=== PATIENT | female | born 1950 | race Two or more races ===

== ENCOUNTER 2021-11-22 14:16 | Inpatient (IN) | payer MEDICARE ==
[2021-11-22] MEDS: ACETAMINOPHEN TAB 325 MG TAB PO STA ×2 (17:10→17:12)
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
[2021-11-22 17:19] LABS: Anisocytosis Slight; Basophils % (A) 0 %; Eosinophils # (A) 0.1 k/uL (0-0.7); Eosinophils % (A) 2 %; HGB 8.7 gm/dL (11.4-16.0); Hypochromasia Marked; Lymphocytes # (A) 0.9 k/uL (1.0-4.8); Lymphocytes % (A) 19 %; MCH 20.8 pg (25.0-35.0); MCHC 27.3 g/dL (31.0-37.0); MCV 76.2 fL (80.0-100.0); Mean Platelet Volume 7.2; Microcytosis Slight; Monocytes # (A) 0.2 k/uL (0-1.0); Monocytes % (A) 5 %; Neutrophils # (A) 3.4 k/uL (1.3-7.7); Neutrophils % (A) 73 %; Platelet Count 273 k/uL (150-450); RDW 18.3 % (11.5-15.5); WBC 4.6 k/uL (3.8-10.6)
[2021-11-22 17:33] LABS: ALT 11 U/L (4-34); AST 32 U/L (14-36); African American GFR (CKD) >90 (>60 ml/min/1.73 sqM); Albumin 4.2 g/dL (3.5-5.0); Alkaline Phosphatase 81 U/L (38-126); Anion Gap 11 mmol/L; Blood Urea Nitrogen 12 mg/dL (7-17); Calcium 9.3 mg/dL (8.4-10.2); Carbon Dioxide 23 mmol/L (22-30); Chloride 106 mmol/L (98-107); Glucose 106 mg/dL (74-99); Magnesium 1.9 mg/dL (1.6-2.3); Non-African American GFR(CKD) >90 (>60 ml/min/1.73 sqM); Potassium 4.7 mmol/L (3.5-5.1); Sodium 140 mmol/L (137-145); Total Bilirubin 0.7 mg/dL (0.2-1.3); Total Protein 7.5 g/dL (6.3-8.2)
[2021-11-22 17:36] LABS: Prothrombin Time 10.9 sec (9.0-12.0)
[2021-11-22 17:42] LABS: Partial Thromboplastin Time 21.3 sec (22.0-30.0)
--- NOTE | 2021-11-22 18:10 | CT ---
EXAMINATION TYPE: CT brain wo con DATE OF EXAM: 11/22/2021 COMPARISON: None HISTORY: Bilateral lower leg weakness x1 week. CT DLP: 1028.[address] of the brain was performed. The ventricles, basal cisterns and sulci overlying the cerebral convexities demonstrate mild enlargem ent. There is no evidence for intracranial hemorrhage or sulcal effacement. There is decreased attenuation about the periventricular white matter and deep white matter of both c erebral hemispheres, compatible with chronic small vessel ischemia. Differential diagnosis does inclu de demyelination. No mass effects are seen.No midline shift. Osseous calvarium is intact. If symptoms persist consider MRI. IMPRESSION: 1. Age related atrophic and chronic small vessel ischemic change without acute intracranial process s een at this time.
--- NOTE | 2021-11-22 18:28 | CT ---
EXAMINATION TYPE: CT thor lumbar spine wo con DATE OF EXAM: 11/22/2021 COMPARISON: None. HISTORY: Bilateral lower leg weakness x1 week. CT DLP: 663.2 mGycm Automated exposure control for dose reduction was used. FINDINGS: Thoracic spine: The thoracic vertebral bodies do have preserved heights and alignment. Intervertebral discs and osse ous structures have normal appearance. I do not see any evidence of extradural defects nor significan t spinal canal narrowing at any thoracic vertebral body level. Lumbar Spine: Alignment: There are 6 lumbar type vertebral bodies within normal alignment. Bone: No evidence of fracture is identified. The level degenerative disc disease changes are seen th roughout the spine. Discs: T12-L1: No spinal canal or neural foraminal stenosis is identified. L1-L2: No spinal canal or neural foraminal stenosis is identified. L2-L3: No spinal canal or neural foraminal stenosis is identified. L3-L4: No spinal canal or neural foraminal stenosis is identified. L4-L5: No spinal canal or neural foraminal stenosis is identified. L5-S1: No spinal canal or neural foraminal stenosis is identified. Other: Left parapelvic renal cyst measuring up to 5.7 x 3.1 cm IMPRESSION: No CT evidence of fracture, disc herniation, spinal canal or neural foraminal stenosis.
--- NOTE | 2021-11-22 18:49 | CT ---
EXAMINATION TYPE: CT angio head neck DATE OF EXAM: 11/22/2021 HISTORY: Bilateral lower leg weakness x1 week. COMPARISON: None CT DLP: 316.3 mGycm. Automated Exposure Control for Dose Reduction was Utilized. TECHNIQUE: CTA scan of the neck is performed with IV Contrast, patient injected with 65ml of Isovue 370, axial images are obtained, coronal and sagittal reformatted images are reviewed. 3D reconstructe d images are created on an independent workstation and reviewed. FINDINGS: Carotid/Vascular Structures: Right Carotid System: The common carotid artery and external carotid artery are patent There is no evidence stenosis at th e carotid bifurcation. The remaining portions of the internal carotid artery demonstrate normal size without significant narrowing. Left Carotid System: The common carotid artery and external carotid artery are patent There is no evidence stenosis at th e carotid bifurcation. The remaining portions of the internal carotid artery demonstrate normal size without significant narrowing. There is anatomic variant for vessel aortic arch. The vertebral arteries are patent. CTA HEAD: No evidence of acute intracranial hemorrhage, mass effect, or midline shift. The ventricles, sulci, a nd cisterns are unremarkable. The visualized portions of the internal carotid arteries, middle cerebral arteries, anterior cerebral arteries, and posterior cerebral arteries are patent. The basilar and vertebral arteries are patent. IMPRESSION: 1. No evidence of dissection of the cervical internal carotid arteries or vertebral arteries or any e vidence of significant stenosis at the carotid bifurcations. 2. No evidence of high-grade stenosis or intracranial aneurysm.
[2021-11-22] MEDS ORDERED: ACETAMINOPHEN TAB 325 MG TAB PO PRN (19:08)
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
[2021-11-23 16:14] LABS: Amorphous Sediment,Urine Rare /hpf; Appearance,Urine Cloudy (Clear); Bacteria,Urine Few /hpf; Bilirubin,Urine Negative (Negative); Blood,Urine Negative (Negative); Color,Urine Yellow; Glucose,Urine (UA) Negative (Negative); Granular Casts,Urine 1 /lpf (0); Hyaline Casts,Urine 1 /lpf (0-2); Ketones,Urine 1+ (Negative); Leukocyte Esterase,Urine Large (Negative); Mucus,Urine Many /hpf; Nitrite,Urine Negative (Negative); PH, Urine 6.5 (5.0-8.0); Protein,Urine Negative (Negative); RBC,Urine 2 /hpf (0-5); Specific Gravity,Urine 1.024 (1.001-1.035); WBC,Urine 14 /hpf (0-5)
[2021-11-23 16:17] LABS: Amphetamine Screen,Urine Not Detected (NotDetected); Barbiturate Screen,Urine Not Detected (NotDetected); Benzodiazepines Screen,Urine Not Detected (NotDetected); Cocaine Screen,Urine Not Detected (NotDetected); Methadone Screen, Urine Not Detected (NotDetected); Opiate Screen,Urine Not Detected (NotDetected); Oxycodone Screen, Urine Not Detected (NotDetected); Phencyclidine Screen,Urine Not Detected (NotDetected); Tricyclic Antidepressant,Urine Not Detected (NotDetected); Urn Cannabinoid Scrn Not Detected (NotDetected)
[2021-11-23] MEDS: IOPAMIDOL CONTRAST (ORAL USE) VIAL PO PRN ×2 (16:41→17:43)
[2021-11-23] MEDS: HEPARIN SODIUM,PORCINE/PF 5,000 UNIT/0.5 ML SYRINGE SQ SCH ×2 (16:44→21:27)
[2021-11-23 17:11] LABS: C Reactive Protein <0.5 mg/dL (<1.0)
--- NOTE | 2021-11-23 20:14 | CT ---
EXAMINATION TYPE: CT ChestAbdPelvis wo con CT DLP: 658 mGycm, Automated exposure control for dose reduction was used. DATE OF EXAM: 11/23/2021 6:58 PM COMPARISON: CT T-spine L-spine. CLINICAL INDICATION:Female, 71 years old with history of occult malignancy- paraneoplastic neuropathy ;, Occult malignancy, paraneoplastic neuropathy Technique: Multiple axial images of the chest, abdomen, and pelvis were obtained following the intrav enous administration of 100 mL Isovue-300. Two-dimensional coronal and sagittal reconstructions were obtained. Findings: CHEST: LUNGS/ PLEURA: No evidence of mass or clinically significant pulmonary nodule.. AIRWAY: Patent and unremarkable.. HEART: Size within normal limits. MEDIASTINUM: No gross evidence of adenopathy. VASCULATURE: No aortic aneurysm. MUSCULOSKELETAL: No acute osseous abnormalities SOFT TISSUES/LYMPH NODES: Unremarkable. LOWER NECK: No significant findings. ABDOMEN: ABDOMEN LIVER: Unremarkable GALLBLADDER AND BILE DUCTS: Gallbladder is distended up to 10.4 x 2.6 cm. PANCREAS: Unremarkable. SPLEEN: Unremarkable. ADRENAL GLANDS: Unremarkable. KIDNEYS AND URETERS: No evidence of hydronephrosis or renal calculus. The ureters are unremarkable. Left renal cyst 6.0 x 3.3 cm PELVIS BLADDER: Distended and within normal limits. REPRODUCTIVE: Unremarkable. ABDOMEN & PELVIS STOMACH AND BOWEL: No evidence of bowel obstruction. There is no evidence for mass in the bowel. The appendix is visualized and unremarkable. PERITONEUM: No evidence of pneumoperitoneum or free fluid. VASCULATURE: No evidence of aortic aneurysm. MUSCULOSKELETAL: No acute osseous abnormalities bony islands in the femoral head on the left and neck on the right. LYMPH NODES: No gross evidence for lymphadenopathy. SOFT TISSUE/ABDOMINAL WALL: Unremarkable IMPRESSION: No evidence for mass or acute process.
--- NOTE | 2021-11-23 21:24 | P.CNNES ---
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 The symptoms started around 11/14/2021, when she noticed she has hard time to walk and it has progressed since then. Her balls of the feet are feeling like sandpaper. She feels stiff and heaviness in the legs from knees down. It is hard for her to lift the legs. The muscles in the legs and feet feels very tight. She felt walking stifflegged gait. When she goes up to stand and walk, her balance is really off and needs help. There is no pain. Prior to 11/14/2021, she used to walk without any device, no falls or balance issues. 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 She always been a very active person. She denies any symptoms in her hands like paresthesias or weakness. Her hands just feel dry. Her neck hurts only with stress but not other times. Denies any low back pain. No falls. Patient denies any bowel or bladder issues like urgency frequency or incontinence. Denies any headache or any visual problems except for cataract in the left eye. Patient states that her knee cap and distal hamstrings feels full. Patient denies any recent upper respiratory infection although she does have sinus that she has "all her life. Nothing new. Denies any gastroenteritis. She received Pfizer vaccines both doses in Spring 2020. Has not received the booster dose yet. Vital signs arrival blood pressure 152/74, pulse rate 99, temperature 98.4. Blood test shows normal WBC, hemoglobin 8.7, platelets 273. PT is normal INR is 1.0. Chem-7 is normal. Hepatic panel normal. Mccoy virus PCR negative. Computed tomography scan head showed age-related atrophy and chronic small vessel ischemic change, without acute intracranial process seen. CTA of the hea d shows no evidence of dissection of the cervical internal carotid arteries or vertebral arteries or any evidence of significant stenosis at the carotid bifurcations. No evidence of high-grade stenosis or intracranial aneurysm. EKG shows normal sinus rhythm, nonspecific ST abnormality. CT of the thoracic and lumbar spine showed no CT evidence of fracture, disc herniation, spinal canal or neural foraminal stenosis. Patient denies diabetes or any alcohol use or tobacco. Review of Systems As above in detail. All other 14 point of review systems reviewed and unrema rkable. Past Medical History Past Medical History: No Reported History History of Any Multi-Drug Resistant Organisms: None Reported Past Surgical History: Section Past Psychological History: No Psychological Hx Reported Smoking Status: Never smoker Past Alcohol Use History: None Reported Past Drug Use History: None Reported Medications and Allergies Home Medications Medication Instructions Recorded Confirmed Type No Known Home Medications 11/22/21 11/23/21 History Allergies Allergy/AdvReac Type Severity Reaction Status Date / Time No Known Allergies Allergy Verified 11/23/21 09:34 Physical Examination - Vital Signs Vital Signs: Vital Signs Temp Pulse Pulse Resp BP BP Pulse Ox 11/23/21 07:00 98.1 F 77 16 132/67 100 11/23/21 06:06 97.5 F L 65 18 111/55 99 11/23/21 01:25 72 18 154/75 97 11/23/21 01:23 98.0 F 68 18 130/59 99 11/22/21 22:13 88 18 134/55 100 11/22/21 19:35 74 18 119/57 100 11/22/21 15:18 98.4 F 99 18 152/74 100 Intake and Output 11/22/21 11/23/21 11/23/21 22:59 06:59 14:59 Other: Voiding Method Toilet # Voids 1 # Bowel Movements 1 Weight 45.359 kg 45.359 kg Patient is an elderly female, in no acute distress. Patient is alert awake oriented to time place and person. Speech and language functions are normal. Attention, concentration and fund of knowledge is ad equate. On cranial examination, pupils are round and reacting to light, visual gamez are full on confrontation, extraocular muscles are intact with no nystagmus. Patient has obvious cataract in the left eye. Face is symmetric, tongue protrudes to the midline. Palatal elevation and sensation normal, hearing is slightly decreased and shoulder shrug normal, facial sensation normal. Shoulder shrug normal. On muscle strength testing, there is no pronator drift and the strength is normal in arms and legs distally and proximally, including detailed testing of the lower extremities. Deep tendon reflexes are 1 in the upper limbs, 3 at the knees, 2+ ankles and plantar is up on the right, but flat on the left. Sensory to touch is equal with no neglect. Cerebellar function showed no ataxia for [id number] testing, although she has slight ataxia for beak-au-spxs testing, left more than right. No dysdiadochokinesia. Tone and bulk of muscles normal. Gait is significantly off. Patient requires one assist, walks with wide-based, very unsteady. Fall risk. On general examination, there is no carotid bruit or murmur, S1-S2 audible. Abdomen is soft nontender, no organomegaly. Chest is clear. Peripheral pulses are present. No edema. Results - Laboratory Findings CBC and BMP: 11/22/21 17:08 11/22/21 17:08 Abnormal Lab Findings: Abnormal Labs 11/22/21 11/22/21 11/22/21 17:08 17:08 17:08 Hgb 8.7 L Hct 32.0 L MCV 76.2 L MCH 20.8 L MCHC 27.3 L RDW 18.3 H Lymphocytes # 0.9 L APTT 21.3 L Creatinine 0.40 L Glucose 106 H Assessment and Plan Assessment: * 71-year-old female admitted with fairly recent onset of distal paresthesias in the feet, and gait difficulties since 11/14/2021, which has progressed since onset. No symptoms involving the upper extremities, or any bowel or bladder issues. Examination reveals slightly brisk reflexes in the legs, with Babinski on the right. Her muscle strength is intact in the arms and legs. Rule out B12 or folate deficiency. Guillain-Pacheco syndrome less likely with no preceding upper respiratory infection, or recent vaccination and preserved reflexes. Patient denies any bowel or bladder issues. Plan: * Agree with checking B12 and folate. We will also check MMA, B6, Sjogren's antibodies, HARSH, hemoglobin A1c, immune fixation electrophoresis, IgM. * Further management based upon above test results. * Thank you for the consult.
[2021-11-24 03:29] LABS: Vitamin B12 <150.0 pg/mL (200.0-944.0)
[2021-11-24 04:44] LABS: % Iron Saturation 2.35 (12.00-45.00); Ferritin 2.3 ng/mL (10.0-291.0)
[2021-11-24 09:31] LABS: Basophils # (A) 0.02 X 10*3/uL (0.00-0.10); Basophils % (A) 0.6 %; Eosinophils # (A) 0.16 X 10*3/uL (0.04-0.35); Eosinophils % (A) 4.5 %; HCT 30.9 % (37.2-46.3); HGB 7.8 g/dL (12.0-15.0); Lymphocytes % (A) 28.1 %; MCH 19.2 pg (27.0-32.0); MCHC 25.2 g/dL (32.0-37.0); MCV 76.1 fL (80.0-97.0); Mean Platelet Volume 9.6 fL (9.5-12.2); Monocytes # (A) 0.27 X 10*3/uL (0.20-1.00); Monocytes % (A) 7.6 %; Neutrophils % (A) 58.9 %; Platelet Count 258 X 10*3/uL (140-440); RBC 4.06 X 10*6/uL (4.10-5.20); RDW 19.2 % (11.5-14.5); WBC 3.56 X 10*3/uL (4.50-10.00)
[2021-11-24] MEDS: HEPARIN SODIUM,PORCINE/PF 5,000 UNIT/0.5 ML SYRINGE SQ SCH ×2 (09:37→19:29)
[2021-11-24 10:48] LABS: African American GFR (CKD) 111.8 (60.0-200.0); BUN/Creat Ratio 23.76 Ratio (12.00-20.00); Blood Urea Nitrogen 12.5 mg/dL (9.0-27.0); Calcium 9.3 mg/dL (8.7-10.3); Carbon Dioxide 24.6 mmol/L (20.0-27.5); Chloride 106 mmol/L (96-109); Glucose 93 mg/dL (70-110); Non-African American GFR(CKD) 96.4 (60.0-200.0); Potassium 3.9 mmol/L (3.5-5.5); Sodium 143 mmol/L (135-145)
[2021-11-24 10:54] LABS: Folate, Serum >20.00 ng/mL (4.40-31.00)
[2021-11-24] MEDS: CYANOCOBALAMIN 1,000 MCG/ML 1 ML VIAL IM SCH (10:56)
[2021-11-24] MEDS ORDERED: FOLIC ACID 1 MG TAB PO SCH (12:00)
[2021-11-24] MEDS: MULTIVITAMINS, THERA 1 EACH TAB PO SCH (13:23)
[2021-11-24] MEDS: THIAMINE 100 MG TAB PO SCH (13:23)
--- NOTE | 2021-11-24 16:01 | PN ---
PROGRESS NOTE DATE OF SERVICE: 11/24/2021. HISTORY OF PRESENT ILLNESS: This 71-year-old woman who was admitted with significant difficulties and ataxia, possibly had subacute. Vitamin B12 less than 150, folic acid level was normal indicating possibly vitamin B12 deficiency, but the exact etiology remains unknown. Abdominal CT scan of the abdomen and pelvis and chest to rule out the possibility of occult malignancy and rule out the possibility of paraneoplastic syndrome. The patient also had back pain, but however, diffuse CT scan did not show any acute abnormality of spinal canal stenosis at this time. I discussed with Dr. Turner who is in agreement starting with vitamin B12 1 g IM has been initiated. Would also recommend gastroenterology workup and stool OB for guaiac also and also send out a workup for celiac disease including celiac disease panel and intrinsic factor antibody also has been requested. The patient being closely monitored. The patient also had UTI, which was treated with IV antibiotics. PAST MEDICAL HISTORY: Reviewed. REVIEW OF SYSTEMS: Cardiovascular: No angina. Respiration as mentioned earlier. GI as mentioned earlier. no dysuria. Nervous system: As mentioned earlier. CURRENT MEDICATIONS: Reviewed and include: Tylenol, Rocephin, B12, folic acid, multivitamins, B1. PHYSICAL EXAMINATION: Patient is alert, oriented x3. Pulse is 60, blood pressure 116/80, respiration 15, temperature 97.6, pulse ox 100 percent on room air. HEENT: Conjunctivae normal. Neck: No JVD. Cardiovascular: S1, S2 muffled. Respiratory: Breath sounds diminished in the bases. No rhonchi. No crackles. Abdomen: Soft, nontender. Nervous system: Ataxic. Romberg sign is positive. signs present. LABS: WBC 3.65 and hemoglobin 7.2, MCV noted. ASSESSMENT: 1. Gait dysfunction, ataxia, possibly vitamin B12 deficiency and subacute combined degeneration. 2. Anemia, microcytic, possibly iron deficiency. 3. Rule out pernicious anemia or celiac disease. 4. Mild lymphopenia of undetermined significance. 5. History of back pain. 6. History of section. 7. FULL CODE. RECOMMENDATIONS AND DISCUSSION: I recommend to continue current medications, management and symptomatic treatment. Continue the vitamin supplements as recommended. Discussed with Neurology. Closely follow with Neurology. A CT of the brain was also noted to be normal and otherwise the antibodies mentioned as above have been sent out. We will await those antibodies and I would also recommend the patient to follow closely with primary physician after discharge and as well as neurology regarding the above above-mentioned medical issues. ISELA / EMERYN: [id number] / IRMA
[2021-11-24] MEDS: SODIUM FERRIC GLUCONAT-SUCROSE 125 MG in SODIUM CHLORIDE 0.9% 100 ML IVPB SCH (16:07)
[2021-11-25 04:41] LABS: Gliadin AB IgA, Deaminated NEGATIVE (NEGATIVE); Gliadin AB IgA, Unit <0.2 U/mL; Gliadin AB IgG, Deaminated NEGATIVE (NEGATIVE)
[2021-11-25] MEDS: HEPARIN SODIUM,PORCINE/PF 5,000 UNIT/0.5 ML SYRINGE SQ SCH ×2 (08:59→21:03)
[2021-11-25] MEDS: CYANOCOBALAMIN 1,000 MCG/ML 1 ML VIAL IM SCH (09:00)
[2021-11-25 09:11] LABS: Basophils # (A) 0.02 X 10*3/uL (0.00-0.10); Basophils % (A) 0.5 %; Eosinophils # (A) 0.09 X 10*3/uL (0.04-0.35); Eosinophils % (A) 2.3 %; HCT 30.6 % (37.2-46.3); HGB 7.7 g/dL (12.0-15.0); Lymphocytes # (A) 0.48 X 10*3/uL (0.90-5.00); Lymphocytes % (A) 12.5 %; MCH 19.7 pg (27.0-32.0); MCHC 25.2 g/dL (32.0-37.0); MCV 78.3 fL (80.0-97.0); Monocytes # (A) 0.18 X 10*3/uL (0.20-1.00); Monocytes % (A) 4.7 %; Neutrophils # (A) 3.07 X 10*3/uL (1.80-7.70); Neutrophils % (A) 79.7 %; Platelet Count 215 X 10*3/uL (140-440); RBC 3.91 X 10*6/uL (4.10-5.20); RDW 19.3 % (11.5-14.5); WBC 3.85 X 10*3/uL (4.50-10.00)
[2021-11-25 09:32] LABS: African American GFR (CKD) 111.3 (60.0-200.0); Anion Gap 13.1 mmol/L (10.00-18.00); BUN/Creat Ratio 24.58 Ratio (12.00-20.00); Blood Urea Nitrogen 13.1 mg/dL (9.0-27.0); Calcium 9.3 mg/dL (8.7-10.3); Carbon Dioxide 24.5 mmol/L (20.0-27.5); Potassium 3.9 mmol/L (3.5-5.5)
[2021-11-25] MEDS: SODIUM FERRIC GLUCONAT-SUCROSE 125 MG in SODIUM CHLORIDE 0.9% 100 ML IVPB SCH (09:39)
--- NOTE | 2021-11-25 10:01 | P.PN ---
Subjective Progress Note Date: 11/24/21 Patient was seen for a follow-up. Denies any new changes. Objective - Vital Signs Vital signs: Vital Signs Temp 98.0 F 11/25/21 08:00 Pulse 89 11/25/21 08:00 Resp 16 11/25/21 08:00 BP 99/54 11/25/21 08:00 Pulse Ox 99 11/25/21 08:00 Intake & Output 11/24/21 11/25/21 11/25/21 18:59 06:59 18:59 Intake Total 540 Balance 540 Intake: Oral 540 Other: Voiding Method Toilet Toilet # Voids 3 1 - Exam Examination unchanged. - Labs CBC & Chem 7: 11/25/21 06:09 11/25/21 06:09 Labs: Abnormal Lab Results - Last 24 Hours (Table) 11/24/21 11/24/21 11/25/21 Range/Units 06:39 06:39 06:09 WBC 3.85 L (4.50-10.00) X 10*3/uL RBC 3.91 L (4.10-5.20) X 10*6/uL Hgb 7.7 L (12.0-15.0) g/dL Hct 30.6 L (37.2-46.3) % MCV 78.3 L (80.0-97.0) fL MCH 19.7 L (27.0-32.0) pg MCHC 25.2 L (32.0-37.0) g/dL RDW 19.3 H (11.5-14.5) % Lymphocytes # 0.48 L (0.90-5.00) X 10*3/uL Monocytes # 0.18 L (0.20-1.00) X 10*3/uL Creatinine 0.5 L (0.6-1.5) mg/dL BUN/Creatinine Ratio 23.76 H (12.00-20.00) Ratio IgM 365.0 H (40.0-280.0) mg/dL 11/25/21 Range/Units 06:09 WBC (4.50-10.00) X 10*3/uL RBC (4.10-5.20) X 10*6/uL Hgb (12.0-15.0) g/dL Hct (37.2-46.3) % MCV (80.0-97.0) fL MCH (27.0-32.0) pg MCHC (32.0-37.0) g/dL RDW (11.5-14.5) % Lymphocytes # (0.90-5.00) X 10*3/uL Monocytes # (0.20-1.00) X 10*3/uL Creatinine 0.5 L (0.6-1.5) mg/dL BUN/Creatinine Ratio 24.58 H (12.00-20.00) Ratio IgM (40.0-280.0) mg/dL Microbiology - Last 24 Hours (Table) 11/23/21 16:00 Urine Culture - Final Urine,Voided Assessment and Plan Assessment: * Severe vitamin B12 deficiency with clinical evidence of subacute combined degeneration of the cord. Plan: * Patient's B12 is severely low < 150 (200-944). Folate > 20. Methylmalonic acid pending. Patient started on vitamin B12 injection 1000 g IM daily. Patient will need injections daily for 1 week, then once a week for 3 months then twice a month. Patient had severe B12 deficiency. Suggest checking intrinsic factor antibodies, parietal cell antibodies. B6 level pending. We will start B6 50 mg daily empirically. * Sjogren's antibodies negative, HARSH negative, IgM is slightly elevated 365/280. Immune fixation electrophoresis pending. * Hemoglobin A1c 5.2 * Patient will need PT OT evaluation and treatment. * Neurologically clear, if cleared by PT OT.
[2021-11-25 11:55] LABS: IgG Subclass 2 595.8 mg/dL (241.80-700.30); IgG Subclass 3 69.1 mg/dL (21.82-176.00); IgG Subclass 4 87.4 mg/dL (3.92-86.40)
[2021-11-25] MEDS: THIAMINE 100 MG TAB PO SCH (11:56)
[2021-11-25] MEDS: MULTIVITAMINS, THERA 1 EACH TAB PO SCH (11:56)
[2021-11-25] MEDS: PYRIDOXINE 50 MG TAB PO SCH (11:56)
[2021-11-25] MEDS ORDERED: SODIUM CHLORIDE 0.9% 1,000 ML IV SCH (19:00)
--- NOTE | 2021-11-25 20:05 | PN ---
PROGRESS NOTE DATE OF SERVICE: 11/25/2021 This 71-year-old woman was admitted with gait dysfunction and ataxia, possibly with subacute combined degeneration and with vitamin B12 deficiency. Patient is being closely monitored. No chest pain. No palpitations. No fever. Neurology is following the patient closely. PHYSICAL EXAMINATION: Alert and oriented x3. Pulse 77, blood pressure 106/59, respirations 16, temperature 98.3, pulse ox 100% on room air. HEENT: Conjunctivae normal. NECK: No jugular venous distention. CARDIOVASCULAR: S1, S2 muffled. RESPIRATION: Breath sounds diminished at the bases. A few scattered rhonchi. ABDOMEN: Soft, nontender. NERVOUS SYSTEM: Higher functions mentioned earlier. Otherwise, sensory abnormalities present. Posterior column sensations diminished in both legs. Romberg sign is positive. LABS: WBC 3.8, hemoglobin 7.7. Other labs are noted. IgG4 was 87, slightly more than normal. HARSH and other autoimmune markers are negative. ASSESSMENT: 1. Gait dysfunction, ataxia, possible subacute combined degeneration secondary to vitamin B12 deficiency. Rule out pernicious anemia. 2. Anemia, microcytic, possibly iron deficiency. Rule out celiac disease. 3. Rule out pernicious anemia, celiac disease. 4. Mild lymphopenia of undetermined significance. 5. History of back pain. 6. History of section. 7. FULL CODE. RECOMMENDATIONS AND DISCUSSION: I recommend to continue current medications, continue with the monitoring, symptomatic treatment. I would recommend hematology/oncology evaluation for the classification of anemia. I would also recommend a gastroenterology evaluation. Continue the current medications. Await further testing and PT/OT evaluation to rule out any significant gait dysfunction and need for any rehab. Further recommendations to follow. MMODL / IJN: [id number] /
[2021-11-26 02:20] VITALS: TEMP 98.3
[2021-11-26 07:25] VITALS: BP 112/69; PULSE 78; RESP 15
[2021-11-26] MEDS: SODIUM FERRIC GLUCONAT-SUCROSE 125 MG in SODIUM CHLORIDE 0.9% 100 ML IVPB SCH (10:05)
[2021-11-26] MEDS: HEPARIN SODIUM,PORCINE/PF 5,000 UNIT/0.5 ML SYRINGE SQ SCH (10:07)
[2021-11-26] MEDS: PYRIDOXINE 50 MG TAB PO SCH (10:07)
[2021-11-26] MEDS: CYANOCOBALAMIN 1,000 MCG/ML 1 ML VIAL IM SCH (10:14)
[2021-11-26] MEDS: MULTIVITAMINS, THERA 1 EACH TAB PO SCH (12:10)
[2021-11-26] MEDS: THIAMINE 100 MG TAB PO SCH (12:10)
--- NOTE | 2021-11-26 13:16 | P.DS ---
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 Rule out pernicious anemia Anemia, microcytic, possibly iron deficiency rule out celiac disease Rule out pernicious anemia, celiac disease Mild lymphopenia of undetermined significance History back pain History of section Full code Discharge disposition Patient is being discharged in a stable condition with guarded prognosis to [facility]. Patient will follow-up with Dr. Waddell in the outpatient setting upon discharge. Patient is to continue vitamin B12 injections weekly for the next 3 months and then twice a month thereafter. Recommend neurology follow-up in the outpatient setting in 1-2 weeks. Total time taken is greater than 35 minutes. Hospital course This is an 71-year-old female who was recently admitted with gait dysfunction and ataxia possibly with subacute combined degeneration of vitamin B12 def iciency and was being closely monitored. She was evaluated by neurology and recommending close outpatient follow-up in the next 1-2 weeks with possible further testing outpatient. Patient will continue on vitamin B12 injections weekly for the next 3 months with periodic outpatient labs and also then continue with B12 injections twice monthly thereafter. Recommend outpatient follow-up with gastroneurology along with hematology in the outpatient setting for further workup of anemia. Currently no reports of chest pain, shortness of breath, or palpitations. Patient is afebrile. No reports of nausea or vomiting and patient is tolerating diet. Patient will be going to [facility] today. Guarded prognosis. On exam vital signs are stable. Cardio S1, S2 are muffled. Respiratory system shows diminished breath sounds at the bases with no wheezing or rhonchi noted. Abdomen is soft and nontender. Nervous system shows diffuse weakness. Please refer to medication reconciliation sheet for a list of medications. Patient Condition at Discharge: Stable Plan - Discharge Summary Discharge Rx Participant: Yes New Discharge Prescriptions: New Multivitamins, Thera [Multivitamin (formulary)] 1 each PO DAILY@1200 tab Acetaminophen Tab [Tylenol] 650 mg PO Q6HR PRN tab PRN Reason: Mild Pain Or Fever > 100.5 Cyanocobalamin [Vitamin B-12 Injection] 1,000 mcg IM WEEKLY #4 ml Thiamine [Vitamin B-1] 100 mg PO DAILY@1200 tab Pyridoxine [Vitamin B-6] 50 mg PO DAILY tab Discharge Medication List Acetaminophen Tab [Tylenol] 650 mg PO Q6HR PRN tab 11/26/21 [Rx] Cyanocobalamin [Vitamin B-12 Injection] 1,000 mcg IM WEEKLY #4 ml 11/26/21 [Rx] Multivitamins, Thera [Multivitamin (formulary)] 1 each PO DAILY@1200 tab 11/26/21 [Rx] Pyridoxine [Vitamin B-6] 50 mg PO DAILY tab 11/26/21 [Rx] Thiamine [Vitamin B-1] 100 mg PO DAILY@1200 tab 11/26/21 [Rx] Follow up Appointment(s)/Referral(s): [facility], [NON-STAFF] - 1-2 Days Gerri Burnham [Primary Care Provider] - Jaxon Reese MD [REFERRING] - 1 Week Activity/Diet/Wound Care/Special Instructions: Patient is going [facility] [place] Activity as followed Patient to follow up with neurology outpatient Patient to receive vitamin B12 IM injections weekly for the next 3 months and then transition to twice a month thereafter and recommend further testing outpatient with neurology Discharge Disposition: TRANSFER TO SNF/ECF
--- NOTE | 2021-11-26 14:02 | MR ---
EXAMINATION TYPE: MR brain wo con DATE OF EXAM: 11/26/2021 1:01 PM COMPARISON: NONE HISTORY: Weakness, ataxia. FINDINGS: The ventricles, basal cisterns and sulci overlying the cerebral convexities are moderately enlarged. There is evidence of mild periventricular white matter ischemic demyelination. Remote deep white matter insults are also noted. No acute edema is seen on diffusion weighted imaging. There is no evidence for midline shift or mass effect. Acute intracranial hemorrhage or extra-axial collection is not evident. The paranasal sinuses and mastoid air cells are well-aerated. IMPRESSION: Age-related atrophic and chronic small vessel ischemic change. No acute intracranial process at this time.
--- NOTE | 2021-11-26 15:02 | MR ---
EXAMINATION TYPE: MR thoracic spine wo con DATE OF EXAM: 11/26/2021 COMPARISON: CT 11/22/2021 HISTORY: 71-year-old female injury, pain, bilateral lower leg weakness for one week, Weakness, ataxia . TECHNIQUE: Multiplanar, multisequence images of the thoracic spine were obtained without IV contrast. FINDINGS: Slightly accentuated mid thoracic kyphosis. Vertebral body heights are preserved. No suspicious bone marrow replacement. A few scattered fatty matrix hemangiomas are noted. No large focal disc herniation or spinal canal compromise. Conus medullaris is normal. There is focal anterior displacement with slight kinking of the spinal cord centered at the T3 and T3 -T4 level. The spinal cord appears plastered along the ventral aspect of the spinal canal and the luda tejal CSF space is expanded to 9 mm as compared to 3 mm just above. Difficult to exclude some very subt le early increased T2 cord signal at this level. On axial sequence, there seems to be maintained CSF pulsation artifact along the dorsal aspect. No prevertebral or paravertebral soft tissue anomaly seen. No significant neuroforaminal stenosis seen within the thoracic spine. IMPRESSION: 1. 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 Refer to sagittal image 7. The spinal cord is plastered along the ventral aspect of the canal he re. Difficult to exclude some very subtle early increased myelopathic cord signal change here. 2. Differential considerations include IDIOPATHIC VENTRAL CORD HERNIATION and a CSF isointense, EXTRA MEDULLARY LESION within the dorsal spinal canal (such as an arachnoid cyst) flattening the cord anter iorly. Given the presence of CSF pulsation artifact within the enlarged dorsal CSF space, the former is favored. Recommend neurosurgical evaluation.
== END 2021-11-26 15:15 | DRG 641 ==
LOC: EC 14:16 → 6NMEDSUR 19:43 → OBSVTOIN 11-24 09:58
PROVIDERS: ADMIT Hospitalist; ATTEND Hospitalist
DX: E53.8 Deficiency of other specified B group vitamins (principal); N39.0 Urinary tract infection, site not specified; G32.0 Subacute combined degeneration of spinal cord in diseases classified elsewhere; Z20.822 Contact with and (suspected) exposure to COVID-19; G31.89 Other specified degenerative diseases of nervous system; D50.9 Iron deficiency anemia, unspecified; D72.810 Lymphocytopenia; G62.9 Polyneuropathy, unspecified; R26.0 Ataxic gait; H26.9 Unspecified cataract; Y92.9 Unspecified place or not applicable; V49.88XA Car occupant (driver) (passenger) injured in other specified transport accidents, initial encounter
CPT/HCPCS: 36415; 70450; 70496; 70498; 70551; 71250; 72128; 72131; 72146; 74176; 80048; 80053; 80306; 81001; 82272; 82607; 82728; 82746; 82747; 82784; 82787; 83036; 83516; 83540; 83550; 83735; 83921; 84207; 85025; 85610; 85652; 85730; 86038; 86140; 86235; 86334; 87086; 87635; 93005; 99285

== ENCOUNTER 2022-03-10 07:50 | Day surgery (SDC) | payer MEDICARE ==
[2022-03-10 08:57] VITALS: RESP 16; TEMP 98.6
--- NOTE | 2022-03-10 12:27 | CT ---
EXAMINATION TYPE: CT thoracic spine w con DATE OF EXAM: 03/10/2022 INDICATION: Spinal Stenosis, Disease of spinal cord CT DLP: 487.30 mGy.cm Automated Exposure Control for Dose Reduction was Utilized. TECHNIQUE AND CONTRAST: CT scan of the thoracic spine is performed after intrathecal injection of 7 ml of Isovue 300. COMPARISON: MRI dated 11/26/2021 FINDINGS: Adequate study. Redemonstration of the previously seen focal anterior displacement of the thoracic sp inal cord opposite T3 vertebral body with widening of the subarachnoid space posteriorly measuring up to 9 mm in AP dimension. This is associated with focal reduction of the spinal cord caliber at that location and appearance of the scalpel sign. Small amount of contrast can be appreciated between the spinal cord and anterior aspect of the thecal sac. Unremarkable diameter of the remainder of the spin al cord and conus medullaris. Spinal cord signal abnormality cannot be excluded by this CT scan. Diffuse osteopenia. Preserved dorsal kyphosis. No significant anterolisthesis or retrolisthesis. No s ignificant thoracic spinal canal stenosis or neuroforaminal stenosis. Mild degenerative changes of th e thoracic spine with tiny multilevel opposing endplate osteophytosis. Rather maintained intervertebr al disc spaces. No significant thoracic disc herniation or protrusion. No paraspinal lesion. Large le ft parapelvic renal cyst versus extrarenal pelvis appreciated in October 2021 CT scan. IMPRESSION: Redemonstration of the focal anterior displacement/compression of the spinal cord opposite T3 level. Differential diagnoses include posterior contrast-filled arachnoid cyst versus arachnoid web. Ventral spinal cord herniation at that location is less likely considering the presence of CSF between the c ord and anterior aspect of the thecal sac, yet cannot be totally excluded. Recommend neurosurgical co nsultation. Other findings as described above.
--- NOTE | 2022-03-10 12:31 | FL ---
EXAMINATION TYPE: FL myelogram thoracic DATE OF EXAM: 03/10/2022 COMPARISON: MRI dated 11/26/2021 HISTORY: Disease of the spinal cord Technique: Informed consent was obtained and all the patient's questions were answered. Lumbarized S1. The L4-5 level was localized under fluoroscopy. Standard sterile technique was utilized as well as appropriat e local anesthesia 1% Lidocaine. Spinal needle was introduced into the thecal sac under fluoroscopic guidance and 7 mL's of Isovue 300 was injected. The patient tolerated the procedure well. CT myelo graphy is to follow. Total fluoroscopic time of 2 minutes and 44 seconds. 3 images on PACS. IMPRESSION: Successful fluoroscopic-guided myelogram.
[2022-03-10 13:54] VITALS: BP 147/65; PULSE 70
== END 2022-03-10 12:23 | disposition home or self-care (01) ==
LOC: RADPROMAIN 07:50
PROVIDERS: ATTEND Neurological Surgery
DX: G95.20 Unspecified cord compression (principal)
CPT/HCPCS: 62303; 72129; Q9967